=== PATIENT | female | born 1950 | race Hispanic/Latino ===

== ENCOUNTER 2017-05-23 00:01 | Emergency (ER) | payer MEDICARE ==
[~2017-05-23] VITALS: Ht 165.1 cm; Wt 81.6 kg
--- OUTSIDE RECORDS SUMMARY | 2017-05-23 00:04 | XMS REPORT ---
[facility] Address Unknown Phone Unavailable Care Team Providers Care Machine Maintenance Name Role Phone Unavailable Unavailable Problems This patient has no known problems. Allergies, Adverse Reactions, Alerts This patient has no known allergies or adverse reactions. Medications This patient has no known medications. Encounters Start Date/Time End Date/Time Encounter Type Admission Type Attending [facility] Facility Care Department Encounter ID 2017-09-14 00:00:00 2017-09-14 00:00:00 Outpatient [facility] [id number] 2017-01-04 12:02:05 2017-01-04 12:02:05 Outpatient [facility] [id number] 2017-01-04 11:49:59 2017-01-04 11:49:59 Outpatient [facility] [id number] 2016-12-28 10:58:37 2016-12-28 10:58:37 Outpatient [facility] [id number] 2016-12-28 00:00:00 2016-12-28 00:00:00 Outpatient [facility] [id number] 2016-12-03 00:00:00 2016-12-03 00:00:00 Outpatient [facility] [id number] 2016-12-02 09:19:03 2016-12-02 09:19:03 Outpatient [facility] [id number] 2016-10-30 08:10:16 2016-10-30 08:10:16 Outpatient [facility] [id number] 2016-10-08 08:49:11 2016-10-08 08:49:11 Outpatient [facility] [id number] 2016-10-01 00:00:00 2016-10-01 00:00:00 Outpatient [facility] [id number] 2016-09-28 10:44:44 2016-09-28 10:44:44 Outpatient [facility] [id number] 2016-09-17 08:49:36 2016-09-17 08:49:36 Outpatient [facility] [id number] 2016-08-31 14:44:58 2016-08-31 14:44:58 Outpatient [facility] [id number] 2016-04-02 15:54:02 2016-04-02 15:54:02 Outpatient [facility] [id number] 2016-04-02 14:36:42 2016-04-02 14:36:42 Outpatient [facility] [id number]
[2017-05-23] MEDS ORDERED: SODIUM CHLORIDE 0.9% 1000ML 1,000 ML IV ONE (00:30)
[2017-05-23] MEDS ORDERED: ACETAMINOPHEN 1000 MG/100 ML IV STA (00:30)
[2017-05-23] MEDS ORDERED: CEFTRIAXONE SOD 1 GM VIAL IV ONE (00:30)
[2017-05-23 00:58] LABS: BASOPHILS % 0.2 % (0.0-1.0); HEMATOCRIT 36.5 % (34.2-44.1); HEMOGLOBIN 12.4 g/dL (12.0-16.0); LYMPHOCYTES # (AUTO) 1.2 (1.0-3.2); LYMPHOCYTES % 20.2 % (18.0-39.1); MEAN CORPUSCULAR HEMOGLOBIN 31.2 pg (28-32); MEAN CORPUSCULAR VOLUME 91.9 fL (81-99); MONOCYTES # (AUTO) 0.6 (0.2-0.8); MONOCYTES % 10.7 % (4.4-11.3); NEUTROPHILS # (AUTO) 4.1 (2.1-6.9); NEUTROPHILS % 68.7 % (38.7-80.0); PLATELET COUNT 213 x10e3/uL (140-360); RED BLOOD COUNT 3.97 x10e6/uL (3.6-5.1); RED CELL DISTRIBUTION WIDTH 11.8 % (11.7-14.4)
[2017-05-23 00:59] LABS: BILIRUBIN,URINE NEGATIVE (NEGATIVE); KETONES,URINE TRACE (NEGATIVE); LEUKOCYTE ESTERASE ,URINE 2+ (NEGATIVE); NITRITE,URINE NEGATIVE (NEGATIVE); PROTEIN,URINE DIPSTICK NEGATIVE (NEGATIVE); URINE UROBILINOGEN 0.2 mg/dL (0.2 - 1)
[2017-05-23 01:01] LABS: CLARITY,URINE SL CLOUDY (CLEAR); COLOR,URINE YELLOW (YELLOW)
[2017-05-23 01:08] LABS: STREPTOCOCCUS GRP A ANTIGEN NEGATIVE (NEGATIVE)
[2017-05-23 01:10] LABS: BACTERIA,URINE RARE /HPF; EPITHELIAL CELLS,URINE FEW /LPF; RBC,URINE 0-5 /HPF (0-5)
[2017-05-23 01:15] LABS: ALANINE AMINOTRANSFERASE 9 IU/L (0-55); ALBUMIN 3.2 g/dL (3.5-5.0); ALBUMIN/GLOBULIN RATIO 0.7 (0.8-2.0); ALKALINE PHOSPHATASE 78 IU/L (40-150); ANION GAP 15.6 mmol/L (8-16); BLOOD UREA NITROGEN 7 mg/dL (7-26); BUN/CREATININE RATIO 10 (6-25); CALCIUM 8.9 mg/dL (8.4-10.2); CARBON DIOXIDE 24 mmol/L (22-29); CHLORIDE 98 mmol/L (98-107); CREATININE, SERUM 0.71 mg/dL (0.57-1.11); EST GLOMERULAR FILTRATION RATE > 60 ML/MIN (60-); GLUCOSE 156 mg/dL (74-118); POTASSIUM 3.6 mmol/L (3.5-5.1); SODIUM 134 mmol/L (136-145)
--- NOTE | 2017-05-23 01:18 | Diagnostic Imaging Report ---
EXAMINATION: CHEST SINGLE (PORTABLE) INDICATION: Cough. COMPARISON: None FINDINGS: TUBES and LINES: None. LUNGS: Lungs are well inflated. Lungs are clear. There is no evidence of pneumonia or pulmonary edema. PLEURA: No pleural effusion or pneumothorax. HEART AND MEDIASTINUM: The cardiomediastinal silhouette is unremarkable. BONES AND SOFT TISSUES: No acute osseous lesion. Soft tissues are unremarkable. UPPER ABDOMEN: No free air under the diaphragm. IMPRESSION: No acute thoracic abnormality. Signed by: Dr. Gustavo Newton M.D. on 05/23/2017 1:15 AM
[2017-05-23 01:21] LABS: INFLUENZAE A&B ANTIGEN (RAPID) POSITIVE FLU B (NEGATIVE)
[2017-05-23 01:34] VITALS: BP 123/73
== END 2017-05-23 01:35 | disposition home or self-care (01) ==
LOC: ER 00:01
DX: R50.9 Fever, unspecified (principal); J11.1 Influenza due to unidentified influenza virus with other respiratory manifestations; N30.90 Cystitis, unspecified without hematuria
CPT/HCPCS: 36415; 71045; 80053; 81001; 83518; 83605; 85025; 87040; 87070; 87400; 99284; J0696; J7030